=== PATIENT | male | born 1955 | race African-American/Black ===

== ENCOUNTER → 2018-04-09 | Outpatient (CLI) | payer OTHER ==
[2018-04-09 08:29] LABS: CREATININE 1.4 mg/dL (0.7-1.3)
== END ==
LOC: CAT 07:56 → EDSTATUS 16:22
PROVIDERS: Family Medicine
DX: K42.9 Umbilical hernia without obstruction or gangrene (principal); N43.3 Hydrocele, unspecified; N28.1 Cyst of kidney, acquired; J98.11 Atelectasis

== ENCOUNTER → 2019-09-24 | Outpatient (CLI) | payer OTHER ==
[2019-09-24 11:18] LABS: HEMATOCRIT 38.9 % (42.0-52.0); HEMOGLOBIN 12.7 gm/dL (14.0-18.0); MCH 26.7 pg (26.0-34.0); MCHC 32.5 g/dL (28.0-37.0); RBC 4.75 mil/uL (4.50-6.00); RDW 14.4 % (10.5-14.5); WBC 5.4 thou/uL (4.0-11.0)
[2019-09-24 11:32] LABS: ANION GAP 6 mmol/L (7-16); BUN 21 mg/dL (7-18); CALCIUM 9.4 mg/dL (8.5-10.1); CHLORIDE 105 mmol/L (98-107); CHOLESTEROL 126 mg/dL (<200); CO2 30 mmol/L (21-32); CREATININE 1.3 mg/dL (0.7-1.3); GLUCOSE 101 mg/dL (74-106); HDL CHOLESTEROL 53 mg/dL (>40); LDL CHOLESTEROL 68 mg/dL (<100); POTASSIUM 4.9 mmol/L (3.5-5.1); SODIUM 141 mmol/L (136-145); TC:HDL 2.4 Ratio (Not establshd); TRIGLYCERIDE 27 mg/dL (<150); VLDL 5 mg/dL (<40)
== END ==
LOC: CAT 10:39
PROVIDERS: Nurse Practitioner
DX: K43.9 Ventral hernia without obstruction or gangrene (principal); E11.9 Type 2 diabetes mellitus without complications; K56.41 Fecal impaction

== ENCOUNTER → 2019-10-15 | Outpatient (CLI) | payer OTHER | LOC: ULTRA 12:13 | DX: N43.3 Hydrocele, unspecified (principal); N43.42 Spermatocele of epididymis, multiple ==

== ENCOUNTER → 2019-11-06 | Outpatient (CLI) | payer OTHER | END | disposition home or self-care (01) | LOC: GI 08:47 | DX: Z12.11 Encounter for screening for malignant neoplasm of colon (principal); D12.0 Benign neoplasm of cecum; K64.8 Other hemorrhoids; I10 Essential (primary) hypertension; E78.00 Pure hypercholesterolemia, unspecified; E11.9 Type 2 diabetes mellitus without complications; Z98.42 Cataract extraction status, left eye; Z98.890 Other specified postprocedural states; Z79.899 Other long term (current) drug therapy; Z79.4 Long term (current) use of insulin; Z11.59 Encounter for screening for other viral diseases ==

== ENCOUNTER → 2020-04-20 | Outpatient (CLI) | payer OTHER ==
[~2020-04-20] MED LIST: LANTUS SUBQ; LIPITOR 40 MG T40 M1 PO; METFORMIN HCL500 M3 PO; PRINIVIL10 MG PO
[2020-04-20 13:11] LABS: URINE BILIRUBIN NEGATIVE (Negative); URINE BLOOD NEGATIVE (Negative); URINE CLARITY CLEAR; URINE COLOR YELLOW; URINE GLUCOSE-RANDOM* NEGATIVE (Negative); URINE KETONES NEGATIVE (Negative); URINE LEUKOCYTES-REFLEX NEGATIVE (Negative); URINE NITRITE-REFLEX NEGATIVE (Negative); URINE PROTEIN (DIPSTICK) NEGATIVE (Negative); URINE SPECIFIC GRAVITY 1.015 (1.005-1.035); URINE UROBILINOGEN 0.2 E.U./dl (0.2-1.0)
[2020-04-20 13:13] LABS: ABSOLUTE NEUTROPHILS 2.6 thou/uL (1.4-8.2); BASOPHILS 0.6 % (0.0-2.0); EOSINOPHILS 3.3 % (0.0-3.0); HEMATOCRIT 40.7 % (42.0-52.0); HEMOGLOBIN 13.1 gm/dL (14.0-18.0); LYMPHOCYTES 41.1 % (24.0-44.0); MCH 26.4 pg (26.0-34.0); MCHC 32.1 g/dL (28.0-37.0); MCV 82.3 fL (80.0-100.0); MONOCYTES 6.5 % (1.0-8.0); PLATELET COUNT 249 thou/uL (150-400); POLYS 48.5 % (36.0-66.0); RBC 4.94 mil/uL (4.50-6.00); RDW 14.1 % (10.5-14.5); WBC 5.3 thou/uL (4.0-11.0)
[2020-04-20 13:40] LABS: ALBUMIN 4.3 g/dL (3.4-5.0); ANION GAP 9 mmol/L (7-16); BUN 25 mg/dL (7-18); CALCIUM 9.9 mg/dL (8.5-10.1); CHLORIDE 106 mmol/L (98-107); CHOLESTEROL 201 mg/dL (<200); CO2 27 mmol/L (21-32); CREATININE 1.4 mg/dL (0.7-1.3); GLUCOSE 102 mg/dL (74-106); HDL CHOLESTEROL 70 mg/dL (>40); LDL CHOLESTEROL 121 mg/dL (<100); POTASSIUM 4.3 mmol/L (3.5-5.1); SGOT 16 U/L (15-37); SGPT 24 U/L (30-65); SODIUM 142 mmol/L (136-145); TC:HDL 2.9 Ratio (Not establshd); TOTAL BILIRUBIN 0.4 mg/dL (0.2-1.0); TOTAL PROTEIN 8.1 g/dL (6.4-8.2); TRIGLYCERIDE 50 mg/dL (<150); VLDL 10 mg/dL (<40)
[2020-04-21 06:07] LABS: GLYCOHEMOGLOBIN (HGB A1C) 7.3 % (4.8-5.6)
== END ==
LOC: LAB 11:23
PROVIDERS: ATTEND Family Medicine
DX: Z00.00 Encounter for general adult medical examination without abnormal findings (principal); I10 Essential (primary) hypertension; E11.9 Type 2 diabetes mellitus without complications; E78.5 Hyperlipidemia, unspecified; E83.52 Hypercalcemia

== ENCOUNTER → 2020-05-05 | Outpatient (CLI) | payer OTHER | LOC: RAD 09:54 | PROVIDERS: ATTEND Family Medicine | DX: Z13.6 Encounter for screening for cardiovascular disorders (principal); I25.10 Atherosclerotic heart disease of native coronary artery without angina pectoris; E78.00 Pure hypercholesterolemia, unspecified ==

== ENCOUNTER → 2020-07-08 | Outpatient (CLI) | payer OTHER ==
[2020-07-08 11:44] LABS: ABSOLUTE NEUTROPHILS 4.4 thou/uL (1.4-8.2); BASOPHILS 0.9 % (0.0-2.0); EOSINOPHILS 3.3 % (0.0-3.0); HEMATOCRIT 40.6 % (42.0-52.0); HEMOGLOBIN 12.9 gm/dL (14.0-18.0); LYMPHOCYTES 27.1 % (24.0-44.0); MCHC 31.6 g/dL (28.0-37.0); MCV 82.3 fL (80.0-100.0); MONOCYTES 6.6 % (1.0-8.0); PLATELET COUNT 254 thou/uL (150-400); POLYS 62.1 % (36.0-66.0); RBC 4.94 mil/uL (4.50-6.00); RDW 14.9 % (10.5-14.5); WBC 7.1 thou/uL (4.0-11.0)
[2020-07-08 11:54] LABS: ALBUMIN 4.1 g/dL (3.4-5.0); ANION GAP 8 mmol/L (7-16); BUN 20 mg/dL (7-18); CALCIUM 9.3 mg/dL (8.5-10.1); CHLORIDE 104 mmol/L (98-107); CO2 30 mmol/L (21-32); CREATININE 1.4 mg/dL (0.7-1.3); GLUCOSE 163 mg/dL (74-106); POTASSIUM 4.7 mmol/L (3.5-5.1); SGOT 19 U/L (15-37); SGPT 28 U/L (16-63); SODIUM 142 mmol/L (136-145); TOTAL BILIRUBIN 0.4 mg/dL (0.2-1.0); TOTAL PROTEIN 7.6 g/dL (6.4-8.2)
[2020-07-08 12:00] LABS: URINE BILIRUBIN NEGATIVE (Negative); URINE BLOOD NEGATIVE (Negative); URINE CLARITY CLEAR; URINE COLOR YELLOW; URINE GLUCOSE-RANDOM* NEGATIVE (Negative); URINE KETONES NEGATIVE (Negative); URINE LEUKOCYTES-REFLEX NEGATIVE (Negative); URINE NITRITE-REFLEX NEGATIVE (Negative); URINE PROTEIN (DIPSTICK) NEGATIVE (Negative); URINE SPECIFIC GRAVITY 1.015 (1.005-1.035); URINE UROBILINOGEN 0.2 E.U./dl (0.2-1.0)
[2020-07-08 12:10] LABS: CHOLESTEROL 123 mg/dL (<200); HDL CHOLESTEROL 54 mg/dL (>40); LDL CHOLESTEROL 64 mg/dL (<100); TC:HDL 2.3 Ratio (Not establshd); TRIGLYCERIDE 29 mg/dL (<150); VLDL 6 mg/dL (<40)
[2020-07-09 00:06] LABS: GLYCOHEMOGLOBIN (HGB A1C) 8.2 % (4.8-5.6)
== END ==
LOC: LAB 11:04
PROVIDERS: ATTEND Nurse Practitioner
DX: E78.5 Hyperlipidemia, unspecified (principal); E83.52 Hypercalcemia; I10 Essential (primary) hypertension; E11.9 Type 2 diabetes mellitus without complications; Z00.00 Encounter for general adult medical examination without abnormal findings

== ENCOUNTER → 2020-11-04 | Outpatient (CLI) | payer OTHER ==
[2020-11-04 08:27] LABS: ABSOLUTE NEUTROPHILS 3.3 thou/uL (1.4-8.2); BASOPHILS 1.2 % (0.0-2.0); EOSINOPHILS 5.3 % (0.0-3.0); HEMATOCRIT 37.1 % (42.0-52.0); MCH 26.3 pg (26.0-34.0); MCHC 32.4 g/dL (28.0-37.0); MCV 81.3 fL (80.0-100.0); MONOCYTES 8.3 % (1.0-8.0); PLATELET COUNT 275 thou/uL (150-400); POLYS 51.2 % (36.0-66.0); RBC 4.56 mil/uL (4.50-6.00); RDW 15.8 % (10.5-14.5); WBC 6.4 thou/uL (4.0-11.0)
[2020-11-04 08:45] LABS: ALBUMIN 3.7 g/dL (3.4-5.0); ANION GAP 7 mmol/L (7-16); BUN 17 mg/dL (7-18); CALCIUM 9.7 mg/dL (8.5-10.1); CHLORIDE 107 mmol/L (98-107); CHOLESTEROL 144 mg/dL (<200); CO2 28 mmol/L (21-32); CREATININE 1.2 mg/dL (0.7-1.3); GLUCOSE 112 mg/dL (74-106); HDL CHOLESTEROL 63 mg/dL (>40); LDL CHOLESTEROL 75 mg/dL (<100); POTASSIUM 4.6 mmol/L (3.5-5.1); SGOT 19 U/L (15-37); SGPT 27 U/L (30-65); SODIUM 142 mmol/L (136-145); TC:HDL 2.3 Ratio (Not establshd); TOTAL BILIRUBIN 0.4 mg/dL (0.2-1.0); TOTAL PROTEIN 7.3 g/dL (6.4-8.2); TRIGLYCERIDE 34 mg/dL (<150); VLDL 7 mg/dL (<40)
== END ==
LOC: LAB 07:31
PROVIDERS: ATTEND Nurse Practitioner
DX: E11.9 Type 2 diabetes mellitus without complications (principal); Z79.4 Long term (current) use of insulin

== ENCOUNTER → 2021-04-21 | Outpatient (CLI) | payer OTHER ==
[2021-04-21 13:08] LABS: URINE BILIRUBIN NEGATIVE (Negative); URINE BLOOD NEGATIVE (Negative); URINE CLARITY CLEAR; URINE COLOR YELLOW; URINE GLUCOSE-RANDOM* NEGATIVE (Negative); URINE KETONES NEGATIVE (Negative); URINE LEUKOCYTES-REFLEX NEGATIVE (Negative); URINE NITRITE-REFLEX NEGATIVE (Negative); URINE PROTEIN (DIPSTICK) NEGATIVE (Negative); URINE UROBILINOGEN 0.2 E.U./dl (0.2-1.0)
[2021-04-21 13:10] LABS: ABSOLUTE NEUTROPHILS 2.7 thou/uL (1.4-8.2); BASOPHILS 0.9 % (0.0-2.0); HEMATOCRIT 42.5 % (42.0-52.0); HEMOGLOBIN 13.8 gm/dL (14.0-18.0); MCHC 32.5 g/dL (28.0-37.0); MCV 82.9 fL (80.0-100.0); MONOCYTES 6.1 % (1.0-8.0); PLATELET COUNT 248 thou/uL (150-400); RBC 5.13 mil/uL (4.50-6.00); RDW 14.4 % (10.5-14.5); WBC 5.2 thou/uL (4.0-11.0)
[2021-04-21 13:21] LABS: ALBUMIN 4.2 g/dL (3.4-5.0); ANION GAP 6 mmol/L (7-16); BUN 21 mg/dL (7-18); CALCIUM 9.7 mg/dL (8.5-10.1); CHLORIDE 104 mmol/L (98-107); CHOLESTEROL 140 mg/dL (<200); CO2 29 mmol/L (21-32); CREATININE 1.4 mg/dL (0.7-1.3); GLUCOSE 109 mg/dL (74-106); HDL CHOLESTEROL 63 mg/dL (>40); LDL CHOLESTEROL 73 mg/dL (<100); POTASSIUM 5.3 mmol/L (3.5-5.1); SGOT 19 U/L (15-37); SGPT 25 U/L (30-65); SODIUM 139 mmol/L (136-145); TC:HDL 2.2 Ratio (Not establshd); TOTAL BILIRUBIN 0.5 mg/dL (0.2-1.0); TOTAL PROTEIN 7.7 g/dL (6.4-8.2); TRIGLYCERIDE 23 mg/dL (<150); VLDL 5 mg/dL (<40)
== END ==
LOC: LAB 11:38
PROVIDERS: ATTEND Family Medicine
DX: Z00.00 Encounter for general adult medical examination without abnormal findings (principal); I10 Essential (primary) hypertension; E11.9 Type 2 diabetes mellitus without complications; Z79.4 Long term (current) use of insulin; E83.52 Hypercalcemia